=== PATIENT | male | born 1960 | race Caucasian/White ===

== ENCOUNTER 2018-06-28 09:35 | Emergency (ER) | payer MEDICAID ==
[~2018-06-28] VITALS: Ht 182.9 cm; Wt 93.0 kg
[2018-06-28] MEDS ORDERED: MECLIZINE HCL 25 MG TABLET PO ONE (10:45)
[2018-06-28] MEDS ORDERED: MECLIZINE HCL 25 MG TABLET ONE (10:58)
[2018-06-28 11:02] LABS: BASOPHILS # (AUTO) 0.1 K/uL (0.0-8.0); BASOPHILS % (AUTO) 1.3 % (0.0-2.0); EOSINOPHILS # (AUTO) 0.1 K/uL (0.0-0.7); EOSINOPHILS % (AUTO) 2.8 % (0.0-7.0); HEMATOCRIT 45.6 % (36.7-47.1); HEMOGLOBIN 15.9 g/dL (12.5-16.3); LYMPHOCYTES # (AUTO) 1.5 K/uL (20.0-40.0); LYMPHOCYTES % (AUTO) 29.9 % (20.5-51.5); MEAN CORPUSCULAR HEMOGLOBIN 32.7 uug (23.8-33.4); MEAN CORPUSCULAR HGB CONC 35 g/dL (32.5-36.3); MEAN CORPUSCULAR VOLUME 93.9 fL (73.0-96.2); MONOCYTES # (AUTO) 0.5 K/uL (2.0-10.0); MONOCYTES % (AUTO) 9.2 % (0.0-11.0); NEUTROPHILS # (AUTO) 2.8 K/uL (1.8-8.9); NEUTROPHILS % (AUTO) 56.8 % (38.5-71.5); PLATELET COUNT (AUTO) 185 K/uL (152-348); RED BLOOD CELL COUNT(AUTO) 4.86 MIL/uL (4.06-5.63)
--- NOTE | 2018-06-28 11:02 | NUR ---
LABS DRAWN, ANTIVERT ADMIN, EKG CHIO.
[2018-06-28 11:09] LABS: CREATININE 1.1 mg/dL (0.6-1.3); POTASSIUM 4.4 mmol/L (3.5-5.1)
[2018-06-28 11:14] LABS: BILIRUBIN,DIRECT 0.1 mg/dL (0.0-0.2); BILIRUBIN,TOTAL 0.5 mg/dL (0.2-1.0); TOTAL PROTEIN, SERUM 7.5 g/dL (6.4-8.2)
--- NOTE | 2018-06-28 12:06 | NUR ---
MSE COMPLETED, PT D/C'D HOME, ACI X 1 RX GIVEN. PT AMBULTED W/O DIFF/TOOK ALL BEKLONGINGS.
[2018-06-28 12:08] VITALS: BP 110/74
== END 2018-06-28 12:08 | disposition home or self-care (01) ==
LOC: ER 09:41
DX: H81.10 Benign paroxysmal vertigo, unspecified ear (principal)
CPT/HCPCS: 36415; 80048; 80076; 84484; 85025; 93005; 99285; A4663; J8597; 70030-TC